=== PATIENT | female | born 1930 | race Caucasian/White ===

== ENCOUNTER 2017-08-30 13:20 | Emergency (ER) | payer MEDICARE ==
[2017-08-30 14:05] LABS: #Eosinphils 0.4 thou/uL (0.0-0.7); #Lymphocytes 2.9 thou/uL (1.20-3.40); #Monocytes 0.8 thou/uL (0.11-0.59); %Basophils 0.4 % (0.0-1.0); %Eosinophils 4.5 % (0.0-10.0); %Lymphocytes 31.5 % (21.0-51.0); %Monocytes 8.9 % (0.0-10.0); Hematocrit 40.2 % (36.0-47.0); Mean Platelet Volume 8.1 fL (7.4-10.4); Red Blood Cell (RBC) Count 4.21 mill/uL (4.20-5.40); White Blood Cell (WBC) Count 9.1 thou/uL (4.8-10.8)
--- NOTE | 2017-08-30 14:21 | RAD ---
TWO VIEW LEFT HIP: INDICATIONS: Pain. Fall. FINDINGS: No fracture or dislocation. Scattered osseous degenerative change is present. There is vascular ca lcification. IMPRESSION: No acute fracture. POS: [facility]
[2017-08-30 14:27] LABS: Anion Gap 16 mmol/L (10-20); BUN (Urea Nitrogen) 11 mg/dL (9.8-20.1); Calc. Creatinine Clearance 0 mL/min (70-130); Carbon Dioxide 27 mmol/L (23-31); Chloride 99 mmol/L (98-107); Estimated GFR-MDRD 61
[2017-08-30 14:28] LABS: ALT (SGPT) 14 U/L (8-55); AST (SGOT) 18 U/L (5-34); Alkaline Phosphatase 113 U/L (40-150); Bilirubin, Total 0.5 mg/dL (0.2-1.2); Calcium 9.4 mg/dL (7.8-10.44); Globulin 3.5 g/dL (2.4-3.5); Protein, Total 7.3 g/dL (6.0-8.3)
--- NOTE | 2017-08-30 14:36 | RAD ---
LEFT FEMUR TWO VIEWS: HISTORY: An 87-year-old female with left femur and thigh pain following a fall several hours ago. 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 Prominent vascular calcifications. Minimal bony deminer alization. No evidence for acute fracture or dislocation. IMPRESSION: No fracture or dislocation. POS: [facility]
--- NOTE | 2017-08-30 15:11 | CT ---
HEAD CT WITHOUT CONTRAST: Date: 08-30-17 Comparison: 08-31-14 History: Fall, unsteady gait, headache. Technique: Serial axial CT imaging obtained at 5 mm intervals from vertex through skull base without contrast. FINDINGS: Mastoid air cells appear grossly unremarkable. There is opacification of the frontal sinuses and jose ateral ethmoid air cells. No displaced calvarial fracture. There is no intracranial hemorrhage, midline shift, or mass effect. There is stable prominence of th e ventricular system/CSF containing spaces with a mild degree of associated cerebral volume loss. Th ere is no intracranial hemorrhage, midline shift, or mass effect. There is stable opacification of the sphenoid sinus. IMPRESSION: Cerebral volume loss. No intracranial hemorrhage or displaced calvarial fracture. POS: [facility]
--- NOTE | 2017-09-09 12:54 | EKG ---
Test Reason : Blood Pressure : / mmHG Vent. Rate : 075 BPM Atrial Rate : 075 BPM P-R Int : 140 ms QRS Dur : 146 ms QT Int : 450 ms P-R-T Axes : 046 -23 109 degrees QTc Int : 502 ms Normal sinus rhythm Left bundle branch block Abnormal ECG Confirmed by ELICEO UMANZOR MD ([id number]), story editor JEAN CARLOS RHODES ([id number]) on 09/09/2017 12:54:20 PM Referred By: Confirmed By:ELICEO UMANZOR MD
== END 2017-08-30 16:50 | disposition home or self-care (01) ==
LOC: ERS 13:20
DX: S70.02XA Contusion of left hip, initial encounter (principal); E11.9 Type 2 diabetes mellitus without complications; E78.5 Hyperlipidemia, unspecified; I95.9 Hypotension, unspecified; F32.9 Major depressive disorder, single episode, unspecified; W19.XXXA Unspecified fall, initial encounter
CPT/HCPCS: 70450; 80053; 85025; 93005

== ENCOUNTER 2018-06-26 17:02 | Emergency (ER) | payer MEDICARE, OTHER ==
[2018-06-26 17:55] LABS: #Basophils 0.1 thou/uL (0.0-0.2); #Eosinphils 0.3 thou/uL (0.0-0.7); #Lymphocytes 3.7 thou/uL (1.20-3.40); #Monocytes 0.9 thou/uL (0.11-0.59); #Neutrophils 5.3 thou/uL (1.40-6.50); %Basophils 0.8 % (0.0-1.0); %Eosinophils 3.3 % (0.0-10.0); %Lymphocytes 36.3 % (21.0-51.0); %Monocytes 8.4 % (0.0-10.0); %Neutrophils 51.2 % (42.0-75.0); Hemoglobin 14.4 g/dL (12.0-16.0); Mean Corpuscular HGB CONC 35.3 g/dL (32.0-36.0); Mean Corpuscular Hemoglobin 34.7 pg (27.0-31.0); Mean Corpuscular Volume 98.2 fL (78.0-98.0); Mean Platelet Volume 8.1 fL (7.4-10.4); Platelet Count 255 thou/uL (130-400); RBC Distribution Width 11.8 % (11.5-14.5); Red Blood Cell (RBC) Count 4.15 mill/uL (4.20-5.40); White Blood Cell (WBC) Count 10.3 thou/uL (4.8-10.8)
[2018-06-26 18:05] LABS: Bilirubin Negative (Negative); Blood, Urine Negative (Negative); Clarity CLEAR (Clear); Glucose, Urine (Dipstick) 500 mg/dL (Negative); Leukocyte Negative (Negative); Nitrite Negative (Negative); Protein, Urine (Dipstick) Negative (Neg-Trace); Specific Gravity, Urine 1.016 (1.002-1.036); pH, Urine 6.5 (5.0-9.0)
--- NOTE | 2018-06-26 18:11 | CT ---
CT HEAD NONCONTRAST: 06/26/18 HISTORY: Fall. Head injury. FINDINGS: There is no evidence of acute intracranial hemorrhage or infarct. Diffuse cortical atrophy and chroni c ischemic small vessel disease are again demonstrated. No mass effect or shift of midline structures . Chronic mucosal thickening of the paranasal sinuses is similar in appearance to the previous exam. IMPRESSION: Chronic type findings are stable. No acute intracranial abnormalities are demonstrated. POS: [facility]
--- NOTE | 2018-06-26 18:14 | CT ---
CT CERVICAL SPINE NONCONTRAST: 06/26/18 HISTORY: Fall. Neck injury. FINDINGS: Vertebral body heights are maintained. Minimal degenerative spondylolisthesis at the C3-4, C4-5 and C 6-7 levels. Disc space narrowing most pronounced at the C5-6 and C6-7 levels. Posterior disc bulge an d calcification most pronounced at the C3-4 level with severe central canal stenosis. No acute fractu re or dislocation are apparent. IMPRESSION: No acute osseous abnormalities are demonstrated. Prominent degenerative changes cervical spine includ ing severe central canal stenosis. POS: [facility]
--- NOTE | 2018-06-26 18:18 | RAD ---
RIGHT HIP TWO VIEWS: 06/26/18 HISTORY: Fall. Right hip injury. FINDINGS: Mild to moderate disc space narrowing, osteophytosis, and subchondral sclerosis. No acute fracture or dislocation are apparent. Femoral head contour maintained. Calcification within the arterial structu res. IMPRESSION: Degenerative changes right hip. No acute osseous abnormalities are demonstrated. Atherosclerosis. POS: [facility]
--- NOTE | 2018-06-26 18:20 | RAD ---
LEFT KNEE FOUR VIEWS: 06/26/18 HISTORY: Left knee injury. FINDINGS: Total knee prosthesis is in place without perihardware lucency. No acute fracture or dislocation. Chetan cification within the arterial structures. IMPRESSION: Left knee prosthesis. No acute osseous abnormalities are demonstrated. Atherosclerosis. POS: [facility]
[2018-06-26 18:21] LABS: ALT (SGPT) 18 U/L (8-55); AST (SGOT) 17 U/L (5-34); Albumin 3.9 g/dL (3.4-4.8); Alkaline Phosphatase 90 U/L (40-150); Anion Gap 19 mmol/L (10-20); BUN (Urea Nitrogen) 21 mg/dL (9.8-20.1); Bilirubin, Total 0.4 mg/dL (0.2-1.2); Calc. Creatinine Clearance 0 mL/min (70-130); Carbon Dioxide 19 mmol/L (23-31); Chloride 101 mmol/L (98-107); Estimated GFR-MDRD 47; Globulin 3.2 g/dL (2.4-3.5); Glucose 327 mg/dL (83-110); Potassium 4.5 mmol/L (3.5-5.1); Protein, Total 7.1 g/dL (6.0-8.3); Sodium 134 mmol/L (136-145)
[2018-06-26 18:24] LABS: CKMB 1.7 ng/mL (0-6.6); Troponin I 0.011 ng/mL (< 0.028)
== END 2018-06-26 18:28 | disposition home or self-care (01) ==
LOC: ERS 17:02
DX: M25.562 Pain in left knee (principal); E11.9 Type 2 diabetes mellitus without complications; E78.5 Hyperlipidemia, unspecified; I95.9 Hypotension, unspecified; F32.9 Major depressive disorder, single episode, unspecified; Z79.899 Other long term (current) drug therapy; W19.XXXA Unspecified fall, initial encounter
CPT/HCPCS: 36415; 51701; 70450; 72125; 80053; 81003; 82553; 84484; 85025; 87086; A4353

== ENCOUNTER 2018-10-09 13:17 | Emergency (ER) | payer MEDICARE, OTHER ==
--- NOTE | 2018-10-09 14:44 | RAD ---
SINGLE VIEW CHEST: Date: 10/09/18 COMPARISON: 05/16/16. HISTORY: Fall today at [facility] with chest pain. FINDINGS: Single view of the chest shows normal sized cardiomediastinal silhouette. The patient pacemaker is un changed in position. There is no evidence of consolidation, mass, or pleural effusion. Degenerative c hanges are seen in the spine. IMPRESSION: No evidence of acute cardiopulmonary disease. POS: [facility]
--- NOTE | 2018-10-09 14:45 | RAD ---
2 VIEWS RIGHT HIP: Date: 10/09/18 COMPARISON: 06/26/18. HISTORY: [facility] with right hip pain. FINDINGS: Two views of the right hip show no evidence of acute fracture or dislocation. Mild degenerative benitez es are seen in the right hip. Vascular calcifications are seen. IMPRESSION: No evidence of acute osseous abnormality. POS: [facility]
--- NOTE | 2018-10-09 14:46 | RAD ---
1 VIEW PELVIS: Date: 10/09/18 HISTORY: Trauma. Pain. COMPARISON: 08/31/14. FINDINGS: Sacral ala are preserved. Sacroiliac joints are unchanged. Bony pelvis is intact. Contour of both fem oral heads are maintained. Hip joint spaces are symmetric. Vascular calcifications are noted. IMPRESSION: No evidence of fracture. POS: [facility]
--- NOTE | 2018-10-09 15:07 | CT ---
NONCONTRAST CT HEAD: Date: 10/09/18 HISTORY: Trauma. Unwitnessed fall. Right-sided neck pain. Patient reports having headache. COMPARISON: 06/26/18. FINDINGS: There is no evidence of a hemorrhage, acute infarction, mass effect, or midline shift. Mild cerebral volume loss and chronic small vessel ischemic changes are again seen. There is mild cerebellar volume loss also again present. The ventricular system is normal in size, shape, and position for the degre e of sulcal atrophy and is also stable from prior exam. There is opacification of several ethmoidal air cells, as well as complete opacification of the sphen oid sinus, unchanged from prior exam. Mucosal thickening is present in each maxillary antrum, greater on the right. Mastoid air cells are clear. No calvarial fracture is seen. IMPRESSION: 1. No acute intracranial abnormality is demonstrated. 2. Sinus disease including complete opacification of the sphenoid sinus and several ethmoidal air ce lls. POS: [facility]
--- NOTE | 2018-10-09 15:10 | CT ---
NON CONTRAST CT CERVICAL SPINE 10/09/18 COMPARISON: 06/26/18 HISTORY: Trauma. Unwitnessed fall. FINDINGS: Multilevel degenerative changes are again seen in the cervical spine, including prominent facet hyper trophic changes with varying degrees of mild neural foraminal narrowing, but there is moderate to sev ere left-sided neural foraminal narrowing at C4-5 level. There is trace anterolisthesis of C4 on C5 a nd C6 on C7. Vertebral body heights are within normal limits and no obvious fracture is present. There is prominent posterior osteophyte formation and calcification of the posterior margin of the in tervertebral disc with probable calcification of posterior longitudinal ligament at the C3-4 level wh ich does narrow the central spinal canal and likely results in mass effect on the central aspect of t he spinal cord. The prevertebral soft tissues are within normal limits. Vascular calcifications are again seen in the carotid arteries. There is opacification of the limited visualized sphenoid sinus. Visualized lung apices are clear. IMPRESSION: Multilevel degenerative changes with a few levels of trace anterolisthesis, but no acute fracture is seen, and the cervical spine is overall stable from prior exam. POS: [facility]
== END 2018-10-09 15:00 | disposition home or self-care (01) ==
LOC: ERS 13:17
DX: S09.90XA Unspecified injury of head, initial encounter (principal); S70.00XA Contusion of unspecified hip, initial encounter; K21.9 Gastro-esophageal reflux disease without esophagitis; I10 Essential (primary) hypertension; E78.5 Hyperlipidemia, unspecified; F32.9 Major depressive disorder, single episode, unspecified; Z79.01 Long term (current) use of anticoagulants; Z79.899 Other long term (current) drug therapy; Z79.1 Long term (current) use of non-steroidal anti-inflammatories (NSAID); Z79.4 Long term (current) use of insulin; W18.30XA Fall on same level, unspecified, initial encounter
CPT/HCPCS: 70450; 71045; 72125; 72170

== ENCOUNTER 2019-01-12 19:38 | Emergency (ER) | payer MEDICARE, OTHER ==
[2019-01-12 20:23] LABS: #Basophils 0.1 thou/uL (0.0-0.2); #Eosinphils 0.2 thou/uL (0.0-0.7); #Lymphocytes 2.2 thou/uL (1.20-3.40); #Monocytes 1.1 thou/uL (0.11-0.59); %Basophils 0.4 % (0.0-1.0); %Eosinophils 1.5 % (0.0-10.0); %Monocytes 7.8 % (0.0-10.0); %Neutrophils 75.5 % (42.0-75.0); Mean Corpuscular HGB CONC 33.5 g/dL (32.0-36.0); Mean Corpuscular Hemoglobin 32.3 pg (27.0-31.0); Mean Corpuscular Volume 96.5 fL (78.0-98.0); Mean Platelet Volume 7.9 fL (7.4-10.4); Platelet Count 293 thou/uL (130-400); RBC Distribution Width 11.6 % (11.5-14.5); Red Blood Cell (RBC) Count 4.03 mill/uL (4.20-5.40); White Blood Cell (WBC) Count 14.5 thou/uL (4.8-10.8)
[2019-01-12] MEDS ORDERED: Insulin Regular 300 UNITS/3 ML VIAL ONE (20:27)
--- NOTE | 2019-01-12 20:32 | RAD ---
AP VIEW CHEST 01/12/19 HISTORY: Altered mental status. Hyperglycemia. AP view chest is obtained on 01/12/19. COMPARISON: Comparison made to previous exam from 10/09/18. AP view chest demonstrates a dual lead intracardiac defibrillator. The lungs are well aerated. No orlin dence of active intrathoracic disease seen. No evidence of effusions, pneumonia or pneumothorax seen. Mild pulmonary vascular congestion seen. Osseous structures are intact. No evidence of hemo or pneumothorax seen. IMPRESSION: No evidence of acute intrathoracic abnormality seen. POS: [facility]
--- NOTE | 2019-01-12 20:49 | CT ---
CT BRAIN 01/12/19 HISTORY: Altered mental status. Hyperglycemia. Noncontrast enhanced CT images of the brain obtained. Brain and bone windows obtained. CT images of the brain demonstrate diffuse cortical atrophy. Deep white matter ischemic changes seen. No evidence of acute intracranial masses, hemorrhages, strokes or contusions seen. Moderate bilateral ethmoid sinus and complete bilateral frontal sinus mucosal thickening seen. There is complete opacif ication of the sphenoid sinus. There is also moderate right and mild left sided maxillary sinus mucos al thickening. IMPRESSION: 1. Extensive paranasal sinus disease. 2. There is diffuse cortical atrophy and deep white matter ischemic changes seen. POS: [facility]
[2019-01-12 20:52] LABS: ALT (SGPT) 18 U/L (8-55); AST (SGOT) 17 U/L (5-34); Albumin 3.9 g/dL (3.4-4.8); Alkaline Phosphatase 130 U/L (40-150); Anion Gap 16 mmol/L (10-20); BUN (Urea Nitrogen) 20 mg/dL (9.8-20.1); Bilirubin, Total 0.4 mg/dL (0.2-1.2); Calc. Creatinine Clearance 0 mL/min (70-130); Calcium 9.6 mg/dL (7.8-10.44); Carbon Dioxide 25 mmol/L (23-31); Chloride 100 mmol/L (98-107); Estimated GFR-MDRD 41; Globulin 2.9 g/dL (2.4-3.5); Glucose 446 mg/dL (83-110); Potassium 3.7 mmol/L (3.5-5.1); Protein, Total 6.8 g/dL (6.0-8.3); Sodium 137 mmol/L (136-145)
[2019-01-12 22:40] LABS: Bilirubin Negative (Negative); Blood, Urine Large (Negative); Clarity TURBID (Clear); Glucose, Urine (Dipstick) >=1000 mg/dL (Negative); Leukocyte Large (Negative); Nitrite Negative (Negative); Protein, Urine (Dipstick) 100 mg/dL (Neg-Trace); Specific Gravity, Urine 1.028 (1.002-1.036)
[2019-01-12 22:41] LABS: Bacteria/HPF 3+ HPF (None Seen)
[2019-01-12 22:43] LABS: Pathc Cast-AUWi Flag 948.62 (0-2.49); Yeast-AUWi Flag 289.9 (0-25.0)
[2019-01-12 22:56] LABS: Hyaline Casts/LPF 0-3 HYALINE CAST LPF (0-3 Hyaline); Other Casts/LPF None Seen LPF (0-3 Hyaline); Yeast-All Forms None Seen HPF (None Seen)
[2019-01-12] MEDS ORDERED: cefTRIAXone\\ROCEPHIN 1 GM VIAL ONE (23:10)
== END 2019-01-13 00:11 ==
LOC: ERS 19:38
DX: E11.65 Type 2 diabetes mellitus with hyperglycemia (principal); N39.0 Urinary tract infection, site not specified; E78.5 Hyperlipidemia, unspecified; K21.9 Gastro-esophageal reflux disease without esophagitis; I95.9 Hypotension, unspecified; F32.9 Major depressive disorder, single episode, unspecified; E11.9 Type 2 diabetes mellitus without complications; Z79.899 Other long term (current) drug therapy; Z79.4 Long term (current) use of insulin
CPT/HCPCS: 36415; 36416; 51701; 70450; 71045; 80053; 81003; 81015; 82010; 84484; 85025; 87077; 87086; 96365; 96375; J0696; J1815

== ENCOUNTER 2019-07-09 08:59 | Emergency (ER) | payer MEDICARE, OTHER ==
--- NOTE | 2019-07-09 09:30 | RAD ---
XR Hip Lt 2-3 View History: Fall. Injury. Comparison: Pelvis radiograph 2018 Findings: Moderate narrowing left hip joint. Moderate left acetabular osteophyte formation. High sugg estion of nondisplaced fractures of the left superior and inferior pubic ramus. Left lateral thigh soft tissue contusion. Impression: 1. High suggestion nondisplaced left superior and inferior pubic rami fractures. 2. Left lateral thigh soft tissue contusion. 3. High-grade vascular calcifications.
[2019-07-09] MEDS ORDERED: HYDROcodone/Acetaminophen 5/325 mg Tablet ONE (10:01)
--- NOTE | 2019-07-09 10:06 | CT ---
CT Brain WO Con History: Fall. Injury. Comparison: CT brain January 12, 2019 Findings: Moderate atrophy and ex-vacuo dilatation of the extra-axial CSF spaces and ventricular syst ems. Chronic sphenoid sinusitis with osteitis. No acute hemorrhage or infarct. No midline shift or mass effect. Globes are intact. Impression: Chronic findings. No acute hemorrhage or infarct.
== END 2019-07-09 11:09 ==
LOC: ERS 08:59
DX: S32.592A Other specified fracture of left pubis, initial encounter for closed fracture (principal); E11.9 Type 2 diabetes mellitus without complications; E78.5 Hyperlipidemia, unspecified; E78.00 Pure hypercholesterolemia, unspecified; K21.9 Gastro-esophageal reflux disease without esophagitis; F32.9 Major depressive disorder, single episode, unspecified; Z79.4 Long term (current) use of insulin; Z79.899 Other long term (current) drug therapy; W05.0XXA Fall from non-moving wheelchair, initial encounter
CPT/HCPCS: 70450

== ENCOUNTER 2019-08-23 17:23 | Emergency (ER) | payer MEDICARE, OTHER ==
--- NOTE | 2019-08-23 18:45 | RAD ---
Exam:Right femur 2 view HISTORY: Pain. Fall. COMPARISON: None FINDINGS: Nonspecific calcification in the suprapatellar region. Atherosclerosis of the visualized lo wer extremity arterial system. No fracture. No cortical irregularity or periosteal IMPRESSION: 1. No fracture 2. Atherosclerosis. 3. Nonspecific calcification in the suprapatellar joint space.
--- NOTE | 2019-08-23 18:55 | RAD ---
RIGHT ANKLE THREE VIEWS: 08/23/19 HISTORY: Fall. Right ankle pain. FINDINGS/IMPRESSION: The ankle mortise is maintained. No acute fracture or dislocation is identified. POS: [facility]
--- NOTE | 2019-08-23 18:55 | RAD ---
AP PELVIS: 08/23/19 HISTORY: Fall. Hip pain. FINDINGS/IMPRESSION: Comparison made with exam of 10/09/18. No acute fracture or dislocation is identified. POS: [facility]
--- NOTE | 2019-08-23 18:56 | RAD ---
LEFT FEMUR TWO VIEWS: 08/23/19 HISTORY: Fall. Left lower extremity pain. FINDINGS/IMPRESSION: The left femur is intact. There are postop changes of left knee arthroplasty. Vascular calcifications are present. POS: [facility]
== END 2019-08-23 20:49 | disposition home or self-care (01) ==
LOC: ERS 17:23
DX: M25.561 Pain in right knee (principal); M25.562 Pain in left knee; M89.8X5 Other specified disorders of bone, thigh; M89.8X6 Other specified disorders of bone, lower leg; E78.5 Hyperlipidemia, unspecified; E78.00 Pure hypercholesterolemia, unspecified; I95.9 Hypotension, unspecified; K21.9 Gastro-esophageal reflux disease without esophagitis; F03.90 Unspecified dementia, unspecified severity, without behavioral disturbance, psychotic disturbance, mood disturbance, and anxiety; F32.9 Major depressive disorder, single episode, unspecified; Z79.891 Long term (current) use of opiate analgesic; Z79.899 Other long term (current) drug therapy; Z79.4 Long term (current) use of insulin; W05.0XXA Fall from non-moving wheelchair, initial encounter
CPT/HCPCS: 72170

== ENCOUNTER 2019-09-12 17:38 | Emergency (ER) | payer MEDICARE, OTHER ==
[~2019-09-12 17:38] MED LIST: Iopamidol-370 76% 500 ML 1 ML ONE
[2019-09-12 18:02] LABS: #Basophils 0.1 thou/uL (0.0-0.2); #Eosinphils 0.3 thou/uL (0.0-0.7); #Lymphocytes 2.7 thou/uL (1.20-3.40); #Monocytes 0.6 thou/uL (0.11-0.59); #Neutrophils 3.8 thou/uL (1.40-6.50); %Lymphocytes 36.2 % (21.0-51.0); %Monocytes 8.4 % (0.0-10.0); %Neutrophils 50.4 % (42.0-75.0); Hemoglobin 13.2 g/dL (12.0-16.0); Mean Corpuscular HGB CONC 34.1 g/dL (32.0-36.0); Mean Corpuscular Hemoglobin 32.9 pg (27.0-31.0); Mean Corpuscular Volume 96.3 fL (78.0-98.0); Platelet Count 266 thou/uL (130-400); RBC Distribution Width 11.3 % (11.5-14.5); Red Blood Cell (RBC) Count 4.03 mill/uL (4.20-5.40); White Blood Cell (WBC) Count 7.5 thou/uL (4.8-10.8)
[2019-09-12 18:23] LABS: Bilirubin Negative (Negative); Blood, Urine Negative (Negative); Clarity Clear (Clear); Glucose, Urine (Dipstick) Normal (Negative); Leukocyte Negative Leu/uL (Negative); Nitrite Negative (Negative); Protein, Urine (Dipstick) Negative (Neg-Trace); Urobilinogen Normal mg/dL (Less than 2)
[2019-09-12 18:29] LABS: Albumin 3.9 g/dL (3.4-4.8); Anion Gap 12 mmol/L (10-20); BUN (Urea Nitrogen) 14 mg/dL (9.8-20.1); Bilirubin, Total 0.5 mg/dL (0.2-1.2); Calc. Creatinine Clearance 0 mL/min (70-130); Calcium 9.4 mg/dL (7.8-10.44); Carbon Dioxide 29 mmol/L (23-31); Chloride 105 mmol/L (98-107); Estimated GFR-MDRD 58; Glucose 183 mg/dL (83-110); Protein, Total 7.1 g/dL (6.0-8.3); Sodium 142 mmol/L (136-145)
[2019-09-12 18:30] LABS: ALT (SGPT) 12 U/L (8-55); AST (SGOT) 17 U/L (5-34); Alkaline Phosphatase 82 U/L (40-110); CK (CPK) 85 U/L (29-168); Globulin 3.2 g/dL (2.4-3.5)
--- NOTE | 2019-09-12 18:37 | RAD ---
CHEST ONE VIEW: 09/12/19 COMPARISON: 01/12/19 HISTORY: Altered mental status. FINDINGS: Left sided transvenous defibrillator with lead position over the right atrium, right ventricle and co ronary sinus. Lead positions are unchanged. Slight elongation of the aorta. Atherosclerosis of the ao rtic knob. Normal cardiac silhouette. Pulmonary vessels and hilum are normal. Costophrenic angles are clear. Chronic changes in the lung parenchyma, without consolidation or mass. No pneumothorax or oss eous abnormalities. IMPRESSION: Atherosclerosis. No acute cardiopulmonary process. POS: [facility]
[2019-09-12 18:54] LABS: CKMB 2.1 ng/mL (0-6.6)
--- NOTE | 2019-09-12 19:05 | CT ---
CT head noncontrast HISTORY: Altered mental status. COMPARISON: 07/09/2019. FINDINGS: There is no evidence of acute intracranial hemorrhage or infarct. Diffuse cortical atrophy and chronic ischemic small vessel disease are again demonstrated. There is no mass effect or shift of midline structures. Mild mucosal thickening in the ethmoid air cells. IMPRESSION: Chronic-type findings are stable. No acute intracranial abnormalities are demonstrated.
--- NOTE | 2019-09-12 19:14 | CT ---
CT abdomen and pelvis with IV contrast HISTORY: Abdomen pain. COMPARISON: 11/23/2012. FINDINGS: Mild atelectasis at the lung bases. Cysts of the left kidney, measuring up to 4.[address] diameter at the superior pole. No hydronephrosis. No evidence of bowel obstruction or inflammation. Scattered diverticula of the colon. Urinary bladder is unremarkable. Extending obliquely just posterior to the left side of the urinary bladder is a blind-ending tubular structure containing fluid. It measures up to 0.8 cm diameter and may represent a congenital cystic structure or a remnant of the bowel, such as Meckel's diverticulum. This area was inflamed on the ana or CT from 2012 but is no longer inflamed. IMPRESSION: Diverticulosis. No evidence of diverticulitis. Chronic-type findings are stable. No acute abnormalities are demonstrated. Atherosclerosis.
== END 2019-09-12 23:10 ==
LOC: ERS 17:38
DX: R41.82 Altered mental status, unspecified (principal); E11.9 Type 2 diabetes mellitus without complications; E78.5 Hyperlipidemia, unspecified; E78.00 Pure hypercholesterolemia, unspecified; I95.9 Hypotension, unspecified; K21.9 Gastro-esophageal reflux disease without esophagitis; F03.90 Unspecified dementia, unspecified severity, without behavioral disturbance, psychotic disturbance, mood disturbance, and anxiety; F32.9 Major depressive disorder, single episode, unspecified; Z79.899 Other long term (current) drug therapy; Z79.4 Long term (current) use of insulin
CPT/HCPCS: 36415; 51701; 70450; 71045; 74177; 80053; 81003; 82550; 82553; 84484; 85025; 93005; A4353; Q9967